=== PATIENT | male | born 1970 | race Caucasian/White ===

== ENCOUNTER 2021-01-01 17:29 | Inpatient (IN) | payer SELFPAY ==
[~2021-01-01] VITALS: Ht 175.3 cm; Wt 119.1 kg
[2021-01-01] MEDS ORDERED: ENOXAPARIN 40 MG/0.4 ML (LOVENOX) SYR SC SCH (18:00)
[2021-01-01] MEDS: ENOXAPARIN 300 MG/3 ML (LOVENOX) MULTI-DOSE VIAL SQ SCH (18:44)
[2021-01-01 19:14] LABS: BASOPHILS # (AUTO) 0.1 10^3/uL (0.0-0.1); BASOPHILS % (AUTO) 1 % (0-10); EOSINOPHILS # (AUTO) 0.7 10^3/uL (0.0-0.3); EOSINOPHILS % (AUTO) 9 % (0-10); HEMATOCRIT 43 % (40-54); HEMOGLOBIN 13.6 g/dL (13.3-17.7); LYMPHOCYTES # (AUTO) 2.4 10^3/uL (1.0-4.0); LYMPHOCYTES % (AUTO) 29 % (12-44); MEAN CORPUSCULAR HEMOGLOBIN 28 pg (25-34); MEAN CORPUSCULAR HGB CONC 32 g/dL (32-36); MEAN CORPUSCULAR VOLUME 87 fL (80-99); MEAN PLATELET VOLUME 9.7 fL (9.0-12.2); MONOCYTES # (AUTO) 0.8 10^3/uL (0.0-1.0); MONOCYTES % (AUTO) 10 % (0-12); NEUTROPHILS # (AUTO) 4.1 10^3/uL (1.8-7.8); NEUTROPHILS % (AUTO) 51 % (42-75); PLATELET COUNT 339 10^3/uL (130-400); WHITE BLOOD COUNT 8.2 10^3/uL (4.3-11.0)
--- NOTE | 2021-01-01 19:18 | History & Physical ---
HPI History of Present Illness: Nov 25 started getting sick, Nov 28 diagnosed with COVID19, admitted in [place] from Dec 04 to around Dec 18 or . He was on about 5 lpm supplemental oxygen, was down to 3 lpm on discharge. He has been short of breath ever since. He believes he was treated with remdesevir. After he was discharged he has continued to be short of breath and get spasms of chest tightness and dry cough. He had a follow up at [place] and was referred to Steve for pulmonary follow up. He denies chest pain. He had gotten to the point of being able to have oxygen off at rest and stay in the low 90s. When he first got out of the hospital, he would drop to the 70s even with oxygen on when walking to the bathroom, but just before coming here he was able to walk to the bathroom without oxygen and drop in the upper 80s and recover more quickly. His voice is altered and he feels like his chest is almost quivering/vibrating/fluttering- not his heart fluttering however. While in the hospital he was able to get incentive spirometer up to 2000 a few times in a row, but at home only up to a 1000 and once or twice. Source: patient Date seen by provider: Jan 01, 2021 Time Seen by Provider: 19:18 Attending Physician Gatito Son MD PCP No,Local Physician Consult Date of Admission Jan 01, 2021 at 17:29 Home Medications Home Medications Reviewed patient Home Medication Reconciliation performed by pharmacy medication reconciliations environmental sampling technician and/or nursing. Patients Allergies have been reviewed. Allergies Coded Allergies: No Allergy Information Available (Unverified , 01/01/21) NIF-Odyfay-Yvytpo Hx Patient Social History Smoking Status: Never a Smoker Alcohol Use?: No Have you traveled recently?: No Past Medical History PMHx: Depression SurgHx: Carpal tunnel release right hand Umbilical hernia repair Family Medical History Significant Family History: Heart Disease, COPD (3 grandparents and mother) Review of Systems ([facility]) Constitutional: No fever EENTM: epistaxis; No nose congestion Respiratory: cough, short of breath Cardiovascular: No chest pain, No palpitations Gastrointestinal: abdominal pain (right groin pain with coughing); No constipation, No diarrhea, No nausea, No vomiting Genitourinary: No dysuria Musculoskeletal: No joint pain; muscle pain (had left lower leg pain when in the hospital before, that has resolved, does note some mild aching in left upper inner leg) Skin: No rash Reviewed Test Results Reviewed Test Results Radiology CTA chest 01/01/21: IMPRESSION: 1. Cardiac enlargement with mild to moderate bilateral pulmonary emboli. There is no overt right heart enlargement on this series. 2. Extensive bilateral pulmonary infiltrates compatible with pneumonia. Physical Exam-([facility]) Physical Exam Vital Signs VS - Last 72 Hours, by Label 01/01/21 17:52 O2 Delivery Nasal Cannula O2 Flow Rate 5.00 Capillary Refill : General Appearance: WD/WN, mild distress Respiratory: accessory muscle use, rhonchi Cardiovascular: regular rate, rhythm, no murmur Gastrointestinal: normal bowel sounds, non tender, soft Extremities: no pedal edema Neurologic/Psychiatric: alert, normal mood/affect Skin: normal color, warm/dry Assessment/Plan Assessment/Plan Admission Status: Inpatient Order (span 2 midnights) Reason for Inpatient Admission: pulmonary embolism, high risk for complications (1) History of COVID-19 Status: Acute Assessment & Plan: Dx 11/28, outside window of isolation, but still clinically significant- CT still with diffuse infiltrate. No clear evidence of superimposed bacterial pneumonia- no consolidation, afebrile. Check CBC. (2) Enlarged heart Status: Acute Assessment & Plan: Concern for possible right heart strain related to PE, check BNP, troponin and echo. (3) Pulmonary embolism Status: Acute Assessment & Plan: Involving both right and left distal main pulmonary arteries, but not main pulmonary artery. No hypotension. Start enoxaparin 1 mg/kg q12. Requiring 5 lpm supplemental oxygen which has been baseline for him since December with COVID19 infection. Qualifiers: Qualified Codes: I26.99 - Other pulmonary embolism without acute cor pulmonale (4) Chronic respiratory failure with hypoxia Status: Acute Assessment & Plan: Secondary to COVID19, on 3-5 lpm supplemental oxygen at home, but not requiring any support prior to COVID infection. MAT protocol, supplemental oxygen as needed. GATITO SON MD Jan 01, 2021 19:18
[2021-01-01 19:35] LABS: ALANINE AMINOTRANSFERASE 37 U/L (0-55); ALBUMIN 3.6 GM/DL (3.2-4.5); ALKALINE PHOSPHATASE 109 U/L (40-136); BILIRUBIN,TOTAL 0.5 MG/DL (0.1-1.0); BUN/CREATININE RATIO 8; CARBON DIOXIDE 25 MMOL/L (21-32); CHLORIDE 99 MMOL/L (98-107); CREATININE SERUM 1.03 MG/DL (0.60-1.30); GFR ESTIMATED > 60; GLUCOSE 97 MG/DL (70-105); POTASSIUM 4.2 MMOL/L (3.6-5.0); SODIUM 136 MMOL/L (135-145); TOTAL PROTEIN 7.7 GM/DL (6.4-8.2)
[2021-01-01 19:37] LABS: PROTHROMBIN TIME PATIENT 13.9 SEC (12.2-14.7)
[2021-01-01 21:00] VITALS: BP 138/77
[2021-01-01 22:00] VITALS: BP 138/77
[2021-01-01] MEDS ORDERED: RT-ALBUTEROL INHALER HFA (VENTOLIN HFA) 18 GM IH PRN (22:30)
[2021-01-01 23:54] VITALS: BP 128/74
[2021-01-02] MEDS ORDERED: RT-ALBUTEROL INHALER HFA (VENTOLIN HFA) 18 GM IH SCH (03:00)
[2021-01-02 05:00] VITALS: BP 120/70
[2021-01-02] MEDS: ENOXAPARIN 300 MG/3 ML (LOVENOX) MULTI-DOSE VIAL SQ SCH (05:44)
[2021-01-02 05:56] LABS: BASOPHILS # (AUTO) 0.1 10^3/uL (0.0-0.1); BASOPHILS % (AUTO) 1 % (0-10); EOSINOPHILS # (AUTO) 0.8 10^3/uL (0.0-0.3); EOSINOPHILS % (AUTO) 13 % (0-10); HEMATOCRIT 40 % (40-54); HEMOGLOBIN 13.2 g/dL (13.3-17.7); LYMPHOCYTES # (AUTO) 2.1 10^3/uL (1.0-4.0); LYMPHOCYTES % (AUTO) 35 % (12-44); MEAN CORPUSCULAR HEMOGLOBIN 28 pg (25-34); MEAN CORPUSCULAR HGB CONC 33 g/dL (32-36); MEAN CORPUSCULAR VOLUME 86 fL (80-99); MEAN PLATELET VOLUME 10.2 fL (9.0-12.2); MONOCYTES # (AUTO) 0.7 10^3/uL (0.0-1.0); MONOCYTES % (AUTO) 11 % (0-12); NEUTROPHILS # (AUTO) 2.4 10^3/uL (1.8-7.8); NEUTROPHILS % (AUTO) 39 % (42-75); PLATELET COUNT 307 10^3/uL (130-400); WHITE BLOOD COUNT 6.1 10^3/uL (4.3-11.0)
[2021-01-02 08:00] VITALS: BP 116/69
[2021-01-02] MEDS: ALPRAZolam 0.5 MG (XANAX) TAB PO PRN ×2 (08:15→20:51)
[2021-01-02] MEDS ORDERED: SALINE NASAL SPRAY (OCEAN) 45 ML BTL PRN (09:30)
[2021-01-02] MEDS ORDERED: VNL75T PO (10:04)
[2021-01-02] MEDS ORDERED: IBUP-2473 PO (10:04)
[2021-01-02] MEDS ORDERED: ACET-2267 PO (10:04)
--- NOTE | 2021-01-02 10:55 | Progress Note ---
Subjective Subjective/Events-last exam Pt reports breathing feels the same as usual. He had some anxiety this morning and requested alprazolam. He usually takes venlafaxine at home. Objective Exam Last Set of Vital Signs Vital Signs Date Time Temp Pulse Resp B/P (MAP) Pulse Ox O2 Delivery O2 Flow Rate FiO2 01/02/21 08:00 36.0 97 18 116/69 (85) 96 Nasal Cannula 5.00 01/01/21 22:00 32 Capillary Refill : I&O Intake and Output 01/02/21 00:00 Intake Total 500 ml Output Total 300 ml Balance 200 ml Intake Oral 500 ml Output Urine Total 300 ml Daily Weight Change Yes, 24-33 lbs General: Alert, No Acute Distress Lungs: Other (rales) Heart: Other (tachycardic) Extremities: No Edema Psych/Mental Status: Mental Status NL, Mood NL Results/Procedures Lab Laboratory Tests 01/01/21 19:07: White Blood Count 8.2, Red Blood Count 4.90, Hemoglobin 13.6, Hematocrit 43, Mean Corpuscular Volume 87, Mean Corpuscular Hemoglobin 28, Mean Corpuscular Hemoglobin Concent 32, Red Cell Distribution Width 13.4, Platelet Count 339, Mean Platelet Volume 9.7, Immature Granulocyte % (Auto) 1, Neutrophils (%) (Auto) 51, Lymphocytes (%) (Auto) 29, Monocytes (%) (Auto) 10, Eosinophils (%) (Auto) 9, Basophils (%) (Auto) 1, Neutrophils # (Auto) 4.1, Lymphocytes # (Auto) 2.4, Monocytes # (Auto) 0.8, Eosinophils # (Auto) 0.7H, Basophils # (Auto) 0.1, Immature Granulocyte # (Auto) 0.0, Prothrombin Time 13.9, INR Comment 1.0, Sodium Level 136, Potassium Level 4.2, Chloride Level 99, Carbon Dioxide Level 25, Anion Gap 12, Blood Urea Nitrogen 8, Creatinine 1.03, Estimat Glomerular Filtration Rate > 60, BUN/Creatinine Ratio 8, Glucose Level 97, Calcium Level 9.0, Corrected Calcium 9.3, Total Bilirubin 0.5, Aspartate Amino Transf (AST/SGOT) 24, Alanine Aminotransferase (ALT/SGPT) 37, Alkaline Phosphatase 109, Troponin I < 0.028, B-Type Natriuretic Peptide < 10.0, Total Protein 7.7, Albumin 3.6 01/02/21 05:33: White Blood Count 6.1, Red Blood Count 4.69, Hemoglobin 13.2L, Hematocrit 40, Mean Corpuscular Volume 86, Mean Corpuscular Hemoglobin 28, Mean Corpuscular Hem oglobin Concent 33, Red Cell Distribution Width 13.3, Platelet Count 307, Mean Platelet Volume 10.2, Immature Granulocyte % (Auto) 0, Neutrophils (%) (Auto) 39L, Lymphocytes (%) (Auto) 35, Monocytes (%) (Auto) 11, Eosinophils (%) (Auto) 13H, Basophils (%) (Auto) 1, Neutrophils # (Auto) 2.4, Lymphocytes # (Auto) 2.1, Monocytes # (Auto) 0.7, Eosinophils # (Auto) 0.8H, Basophils # (Auto) 0.1, Immature Granulocyte # (Auto) 0.0 Radiology CTA chest 01/01/21: IMPRESSION: 1. Cardiac enlargement with mild to moderate bilateral pulmonary emboli. There is no overt right heart enlargement on this series. 2. Extensive bilateral pulmonary infiltrates compatible with pneumonia. Assessment/Plan Assessment/Plan (1) History of COVID-19 Status: Acute Assessment & Plan: Dx 11/28, outside window of isolation, but still clinically significant- CT still with diffuse infiltrate. No clear evidence of superimposed bacterial pneumonia- no consolidation, afebrile. Check CBC- normal. (2) Enlarged heart Status: Acute Assessment & Plan: Concern for possible right heart strain related to PE, check BNP, troponin and echo. BNP and troponin nml/neg. Echo done this am, waiting on report. (3) Pulmonary embolism Status: Acute Assessment & Plan: Involving both right and left distal main pulmonary arteries, but not main pulmonary artery. No hypotension. Start enoxaparin 1 mg/kg q12. Requiring 5 lpm supplemental oxygen which has been baseline for him since December with COVID19 infection. 01/[address] Garay, will keep on enoxaparin for 24 hours to ensure clot stabilization and anticipate d/c tomorrow on oral anticoagulation. Qualifiers: Qualified Codes: I26.99 - Other pulmonary embolism without acute cor pul monale (4) Chronic respiratory failure with hypoxia Status: Acute Assessment & Plan: Secondary to COVID19, on 3-5 lpm supplemental oxygen at home, but not requiring any support prior to COVID infection. MAT protocol, supplemental oxygen as needed. GATITO HURTADO MD Jan 02, 2021 10:55
[2021-01-02] MEDS ORDERED: APIX5TAB PO (11:10)
[2021-01-02 12:00] VITALS: BP 118/78
[2021-01-02] MEDS: RT-ALBUTEROL INHALER HFA (VENTOLIN HFA) 18 GM IH SCH ×2 (15:33→22:52)
[2021-01-02 16:09] VITALS: BP 126/76
[2021-01-02] MEDS: APIXABAN 5 MG (ELIQUIS) TABLET PO SCH (18:24)
[2021-01-02 19:59] VITALS: BP 117/71
[2021-01-02 23:22] VITALS: BP 97/55
[2021-01-03 04:15] VITALS: BP 122/64
[2021-01-03] MEDS: APIXABAN 5 MG (ELIQUIS) TABLET PO SCH (05:09)
[2021-01-03 05:10] VITALS: BP 122/64
[2021-01-03] MEDS: RT-ALBUTEROL INHALER HFA (VENTOLIN HFA) 18 GM IH SCH (07:00)
[2021-01-03 07:02] VITALS: BP 122/64
[2021-01-03] MEDS ORDERED: ACETAMINOPHEN 500 MG TAB (TYLENOL) PO PRN (07:30)
[2021-01-03 08:11] VITALS: BP 118/61
[2021-01-03] MEDS ORDERED: VENlafaxine 75 MG (EFFEXOR) TAB PO SCH (09:00)
--- NOTE | 2021-01-03 11:48 | Discharge Summary ---
Diagnosis/Chief Complaint Date of Admission Jan 01, 2021 at 17:29 Date of Discharge January 03 2021 Discharge Date: Jan 03, 2021 Discharge Time: 12:00 Primary Care No,Local Physician Discharge Diagnosis Pulmonary Emboli Discharge Summary Discharge Physical Exam Allergies: Coded Allergies: No Allergy Information Available (Unverified , 01/01/21) Vitals & I&Os Vital Signs Date Time Temp Pulse Resp B/P (MAP) Pulse Ox O2 Delivery O2 Flow Rate FiO2 01/03/21 08:11 36.7 86 20 118/61 (80) 96 Nasal Cannula 3.00 01/01/21 22:00 32 General Appearance: No Apparent Distress, WD/WN HEENT: Normal ENT Inspection Respiratory: Lungs Clear, Normal Breath Sounds, No Accessory Muscle Use, No Respiratory Distress Cardiovascular: Regular Rate, Rhythm, No Edema, No Murmur Gastrointestinal: Normal Bowel Sounds, Non Tender, Soft Extremity: Non Tender, No Calf Tenderness Skin: Normal Color, Warm/Dry Neurologic/Psychiatric: Alert, Oriented x3, No Motor/Sensory Deficits, Normal Mood/Affect Hospital Course Was the Problem List Reviewed?: Yes Patient was admitted with a diagnosis of bilateral pulmonary emboli but was hemodynamically stable. He was admitted to the fourth floor started on therapeutic Lovenox changed to Eliquis and is being discharged on Eliquis. Patient is currently stable and anxious to be discharged he is being discharged home on oxygen that he already has as he has had since he had Covid. Labs (last 24 hrs) Patient resulted labs reviewed. Imaging: Reviewed Imaging Report Discussion & Recommendations Discharge Planning: <30 minutes discharge planning Discharge Home Medications: Active Scripts Active Eliquis (Apixaban) 5 Mg Tablet 0 PO UD 2 tabs twice daily for 7 days, then 1 tab twice daily. Reported Tylenol Extra Strength (Acetaminophen) 500 Mg Tablet 1,000 Mg PO Q8H PRN Venlafaxine HCl 75 Mg Tab 75 Mg PO DAILY Condition at discharge Stable Instructions to patient/family Please see electronic discharge instructions given to patient. Clinical Quality Measures Admission Status Admission Status: Inpatient Order (span 2 midnights) Reason for Inpatient Admission: Hypoxia and pulmonary emboli SANJAY MOON MD Jan 03, 2021 11:48
[2021-01-03 12:04] VITALS: BP 117/70
== END 2021-01-03 12:05 | disposition home or self-care (01) | DRG 176 ==
LOC: 4TH 17:29
PROVIDERS: ADMIT Family Medicine; ATTEND Internal Medicine
DX: I26.99 Other pulmonary embolism without acute cor pulmonale (principal); J96.11 Chronic respiratory failure with hypoxia; Z86.16 Personal history of COVID-19; F32.9 Major depressive disorder, single episode, unspecified
CPT/HCPCS: 36415; 80053; 83880; 84484; 85025; 85027; 85610; 93306; 94640; 94664; 94760

== ENCOUNTER → 2021-01-01 | Outpatient (CLI) | payer SELFPAY ==
[~2021-01-01] MED LIST: ACET-2267 PO; APIX5TAB PO; CATHETER FLUSH 10 ML SYR IV PRN; HOLD METFORMIN - RECEIVED CONTRAST 20 ML VIAL IV SCH; IBUP-2473 PO; IOHEXOL 350 MG/ML 100 ML (OMNIPAQUE 350) VIAL IV ONE; NS 100 ML (IVPB) BAG IV ONE; VNL75T PO
--- NOTE | 2021-01-01 18:21 | Diagnostic Imaging Report ---
PROCEDURE: CT angiography of the chest with contrast. TECHNIQUE: Multiple contiguous axial images were obtained through the chest after uneventful bolus administration of intravenous contrast. 3D reconstructed CTA MIP acquisitions were also performed. Auto Exposure Controls were utilized during the CT exam to meet ALARA standards for radiation dose reduction. INDICATION: Hypoxia, pneumonia, cough, pulmonary infiltrates. COMPARISON: None FINDINGS: The heart is slightly enlarged. Bilateral pulmonary emboli are seen in the distal right and left main pulmonary arteries extending into distal branches most pronounced in the lung bases. There is mild to moderate clot burden. The main pulmonary artery is unremarkable. The course and caliber the aorta is normal. Extensive bilateral pulmonary infiltrates are present. There is no pneumothorax or effusion. Reactive lymph nodes are seen within the mediastinum. Visualized upper abdominal solid organs are grossly unremarkable. Osseous structures are age-appropriate. IMPRESSION: 1. Cardiac enlargement with mild to moderate bilateral pulmonary emboli. There is no overt right heart enlargement on this series. 2. Extensive bilateral pulmonary infiltrates compatible with pneumonia. Called to Steve Dahl APRN at 6:20 p.m. by cvb. Dictated by: Dictated on workstation # [id number]
== END ==
LOC: RAD 15:52
PROVIDERS: ATTEND Nurse Practitioner Family
DX: R09.02 Hypoxemia (principal); I51.7 Cardiomegaly; I26.99 Other pulmonary embolism without acute cor pulmonale; R91.8 Other nonspecific abnormal finding of lung field; Z86.16 Personal history of COVID-19
CPT/HCPCS: 71275

== ENCOUNTER 2021-01-19 14:30 | Outpatient (RCR) | payer SELFPAY ==
[~2021-01-19 14:30] MED LIST changes: -CATHETER FLUSH 10 ML SYR IV PRN; -HOLD METFORMIN - RECEIVED CONTRAST 20 ML VIAL IV SCH; -IOHEXOL 350 MG/ML 100 ML (OMNIPAQUE 350) VIAL IV ONE; -NS 100 ML (IVPB) BAG IV ONE
== END 2021-04-19 | disposition home or self-care (01) ==
LOC: CARD 14:30
PROVIDERS: ATTEND Nurse Practitioner Family
DX: R00.2 Palpitations (principal); Z86.16 Personal history of COVID-19
CPT/HCPCS: 93225; 93226

== ENCOUNTER → 2021-11-12 | Outpatient (CLI) | payer SELFPAY ==
--- NOTE | 2021-11-12 11:36 | Diagnostic Imaging Report ---
EXAMINATION: CT chest without contrast. TECHNIQUE: Multiple contiguous axial images were obtained through the chest without the use of intravenous contrast. All CT scans use one or more of the following dose optimizing techniques: automated exposure control, MA and/or KvP adjustment based on patient size and exam type or iterative reconstruction. HISTORY: HX OF COVID 19,HX PULMONARY EMBOLISM COMPARISON: 01/01/2021. FINDINGS: Thyroid: The thyroid is normal. Mediastinum: Heart size is normal without significant pericardial effusion. The aorta is normal in caliber. No suspicious lymphadenopathy. Lungs and airways: Subpleural bands and reticulation seen within the lungs. No consolidation, pleural effusion, or pneumothorax. There is scarring within the lung apices. The airways are normal. Upper abdomen: The subphrenic structures are normal. Musculoskeletal: Degenerative changes of the spine without suspicious osseous lesion or compression fracture. IMPRESSION: 1. No acute abnormality in the chest. 2. Subpleural bands and scarring within the lungs which are compatible with history of COVID-19 infection. Dictated by: Dictated on workstation # [id number]
== END ==
LOC: RAD 10:15
PROVIDERS: ATTEND Nurse Practitioner Family
DX: J84.9 Interstitial pulmonary disease, unspecified (principal); R93.89 Abnormal findings on diagnostic imaging of other specified body structures; Z86.16 Personal history of COVID-19; Z86.711 Personal history of pulmonary embolism
CPT/HCPCS: 71250